=== PATIENT | male | born 1980 | race Caucasian/White ===

== ENCOUNTER 2018-04-06 13:31 | Inpatient (IN) | payer MEDICAID, SELFPAY ==
[2018-04-06 13:59] VITALS: BMI 23.8
[2018-04-06 14:02] VITALS: BP 138/77; PULSE 59; RESP 16; TEMP 36.7; O2SAT 100
--- NOTE | 2018-04-06 14:34 | PCM.HP.STD ---
Problem List (1) Opiate withdrawal Status: Acute History of Present Illness Date of Admission: 04/06/18 Chief Complaint: Heroin withdrawal The patient is a 37 year old Ector Odonnell seeking treatment for acute heroin withdrawal. Patient's last use was at 1 AM. Patient has been experiencing rhinorrhea, restless legs, abdominal cramps, nausea, blurry vision with lacrimation. Patient does not share needles but has reuses needles on occasion. States that he when he reuses needles he cleans them with alcohol. [] Past Medical History Allergies No Known Allergies Allergy (Verified 04/06/18 14:00) Home Medications: Ambulatory Orders Medication Instructions Recorded NK [NK] 04/06/18 Psychiatric History: No pertinent psych hx Lives: Alone Smoking Status: Heavy Smoker (>10/day) Tobacco Use: Cigarettes Alcohol: None Drugs: Heroin - *Family History Maternal History Items: - - health no problems Paternal History Items: - - healthy no problems Review of Systems Constitutional: Denies: Anorexia, Fever Eyes: Denies: Blurred vision, Double vision HEENT: Denies: Head Aches, Sinus Congestion, Sinus Drainage Cardiovascular: Denies: Chest Pain, Palpitations Respiratory: Denies: Cough, Shortness of breath at rest, Sputum production Gastrointestinal: Reports: Nausea. Denies: Abdominal Pain, Vomiting Genitourinary: Denies: Dysuria Musculoskeletal: Denies: Joint Pain, Joint Tenderness Skin: Denies: Dryness Neurological: Denies: Balance problems, Blurred vision, Double vision Psychiatric: Denies: Anxiety, Depression Hematologic/ Lymphatic: Denies: Easy Bruising, Easy Bleeding, Hx of blood clot Comment: Area, lacrimation, restless legs. VTE Information - Inpt Only VTE Present on Admission: No VTE Mechan Device Prophylaxis: None VTE Pharm Prophylaxis ordered?: No Patient Problems: Active and Suspected Problems Opiate withdrawal (Acute) - Physical Exam General: Alert, Cooperative, No apparent distress HEENT: Atraumatic, Normocephalic Neck: No Nodes, Thyroid Normal Size and Texture Lungs: Clear to auscultation, Normal air movement, No rhonchi, No wheeze Cardiovascular: Regular rate, Regular Rhythm, Normal S1, Normal S2, No murmurs Abdomen: Bowel Sounds Present, Soft, Non Tender, Non-Distended, No Hepato-splenomegaly Extremities: No edema, No Calf Tenderness Skin: No rashes Musculoskeletal: No Tenderness to Palpation of Joints or Extremities, No Muscle Wasting Neurological: Deep Tendon Reflexes 2+/4 and Symmetrical, Neuro grossly intact Psych/Mental Status: Normal Affect, Appropriate Vital Signs Temp Pulse Resp BP Pulse Ox 36.7 C 59 L 16 138/77 H 100 04/06/18 14:02 04/06/18 14:02 04/06/18 14:02 04/06/18 14:02 04/06/18 14:02 Oxygen Delivery Method Room Air Assessment/Plan Active and Suspected Problems Opiate withdrawal (Acute) Acute heroin withdrawal Intake CINA for his 16 Patient will be started on the [facility] medical stabilization protocol for acute opiate withdrawal with Subutex. Patient will also have additional medications to help with the symptoms as needed. This will be a 3 day process and patient's date of discharge will be the morning of April 09. Patient advised that this is a lifelong giraldo. Patient will be medically stabilized here and then will be transitioned Via [facility] to the next phase of his treatment protocol. Tobacco abuse: Patient will have nicotine patch. Code Visit Inpatient E&M: 09695 Init Hosp L3
--- NOTE | 2018-04-06 14:41 | HP.PCM_ITS ---
Problem List (1) Opiate withdrawal Status: Acute History of Present Illness Date of Admission: 04/06/18 Chief Complaint: Heroin withdrawal The patient is a 37 year old Ector Odonnell seeking treatment for acute heroin withdrawal. Patient's last use was at 1 AM. Patient has been experiencing rhinorrhea, restless legs, abdominal cramps, nausea, blurry vision with lacrimation. Patient does not share needles but has reuses needles on occasion. States that he when he reuses needles he cleans them with alcohol. [ ] Past Medical History Allergies No Known Allergies Allergy (Verified 04/06/18 14:00) Home Medications: Ambulatory Orders Medication Instructions Recorded NK [NK] 04/06/18 Psychiatric History: No pertinent psych hx Lives: Alone Smoking Status: Heavy Smoker (>10/day) Tobacco Use: Cigarettes Alcohol: None Drugs: Heroin - *Family History Maternal History Items: - - health no problems Paternal History Items: - - healthy no problems Review of Systems Constitutional: Denies: Anorexia, Fever Eyes: Denies: Blurred vision, Double vision HEENT: Denies: Head Aches, Sinus Congestion, Sinus Drainage Cardiovascular: Denies: Chest Pain, Palpitations Respiratory: Denies: Cough, Shortness of breath at rest, Sputum production Gastrointestinal: Reports: Nausea. Denies: Abdominal Pain, Vomiting Genitourinary: Denies: Dysuria Musculoskeletal: Denies: Joint Pain, Joint Tenderness Skin: Denies: Dryness Neurological: Denies: Balance problems, Blurred vision, Double vision Psychiatric: Denies: Anxiety, Depression Hematologic/ Lymphatic: Denies: Easy Bruising, Easy Bleeding, Hx of blood clot Comment: Area, lacrimation, restless legs. VTE Information - Inpt Only VTE Present on Admission: No VTE Mechan Device Prophylaxis: None VTE Pharm Prophylaxis ordered?: No Patient Problems: Active and Suspected Problems Opiate withdrawal (Acute) - Physical Exam General: Alert, Cooperative, No apparent distress HEENT: Atraumatic, Normocephalic Neck: No Nodes, Thyroid Normal Size and Texture Lungs: Clear to auscultation, Normal air movement, No rhonchi, No wheeze Cardiovascular: Regular rate, Regular Rhythm, Normal S1, Normal S2, No murmurs Abdomen: Bowel Sounds Present, Soft, Non Tender, Non-Distended, No Hepato- splenomegaly Extremities: No edema, No Calf Tenderness Skin: No rashes Musculoskeletal: No Tenderness to Palpation of Joints or Extremities, No Muscle Wasting Neurological: Deep Tendon Reflexes 2+/4 and Symmetrical, Neuro grossly intact Psych/Mental Status: Normal Affect, Appropriate Vital Signs Temp Pulse Resp BP Pulse Ox 36.7 C 59 L 16 138/77 H 100 04/06/18 14:02 04/06/18 14:02 04/06/18 14:02 04/06/18 14:02 04/06/18 14:02 Oxygen Delivery Method Room Air Assessment/Plan Active and Suspected Problems Opiate withdrawal (Acute) Acute heroin withdrawal * Intake CINA for his 16 * Patient will be started on the [facility] medical stabilization protocol for acute opiate withdrawal with Subutex. Patient will also have additional medications to help with the symptoms as needed. This will be a 3 day process and patient's date of discharge will be the morning of April 09. * Patient advised that this is a lifelong giraldo. Patient will be medically stabilized here and then will be transitioned Via [facility] to the next phase of his treatment protocol. Tobacco abuse: * Patient will have nicotine patch. Code Visit Inpatient E&M: 84802 Init Hosp L3
[2018-04-06 14:42] VITALS: BMI 23.8
[2018-04-06 15:10] VITALS: PULSE 55
[2018-04-06] MEDS: cloNIDine HCl 0.1 MG Tablet PO ×2 (15:23→18:02)
[2018-04-06] MEDS: Ondansetron ODT 4 MG Tablet PO (15:23)
[2018-04-06] MEDS: Ibuprofen 600 MG Tablet PO (15:24)
[2018-04-06] MEDS: Pramipexole Di-HCl 0.25 MG Tablet PO (15:25)
[2018-04-06] MEDS: Buprenorphine HCl 2 MG TAB.SUBL SL ×2 (15:36→22:14)
[2018-04-06] MEDS: Dicyclomine 10 MG Capsule 20 MG PO (16:57)
[2018-04-06 17:00] VITALS: BP 154/73; PULSE 85; RESP 18; TEMP 36.4
--- NOTE | 2018-04-06 17:26 | NURSING ---
PT HAD A LARGE EMESIS AND PROBABLY VOMITTED UP ALL HIS MEDS- DR DAVILA AWARE AND BENTYL GIVEN- PT WANTS TO SHOWER AND IT IS OK WITH DR Lenora RAMIREZ REMOVED AND D/C
[2018-04-06] MEDS: proMETHazine 25 MG/ML Syringe IM (19:05)
[2018-04-06 22:06] VITALS: BP 106/58; PULSE 55; RESP 16; TEMP 36.9
[2018-04-06] MEDS: hydrOXYzine PAM 25 MG Capsule 50 MG PO (22:14)
[2018-04-06] MEDS: traZODone 50 MG Tablet PO (22:14)
[2018-04-06] MEDS: Methocarbamol 750 MG Tablet PO (22:22)
[2018-04-07] VITALS (8 sets, daily range): BP systolic 96–132; BP diastolic 39–70; PULSE 47–76; RESP 14–16; TEMP 36.8–37.6; O2SAT 98
[2018-04-07] MEDS: proMETHazine 25 MG/ML Syringe IM ×2 (01:09→10:48)
[2018-04-07] MEDS: Loperamide 2 MG Capsule PO (02:10)
[2018-04-07] MEDS: Ondansetron ODT 4 MG Tablet PO ×3 (02:10→17:14)
[2018-04-07] MEDS: Ibuprofen 600 MG Tablet PO ×3 (02:10→22:07)
[2018-04-07] MEDS: Dicyclomine 10 MG Capsule 20 MG PO ×3 (02:10→22:07)
[2018-04-07 06:08] LABS: Absolute Lymphocyte Count 1.12 X10^3/ul (0.83-4.51); Absolute Neutrophil Count 9.8 X10^3/uL (2.0-7.7); Basophil# 0.01 X10^3/uL; Basophil% 0.1 % (0-1); Hematocrit 43.3 % (40-54); Hemoglobin 15.5 g/dl (13.0-16.5); Lymphocyte # 1.12 X10^3/ul (4.0); Lymphocyte % 9.9 % (19-41); Mean Corp Hgb Conc 35.8 g/gl (32-36); Mean Corpuscular Hgb 33.4 pg (27.0-32.0); Mean Corpuscular Volume 93.3 fL (80-94); Mean Platelet Vol. 10.3 fl (6.2-12.0); Monocyte# 0.44 X10^3/uL; Monocyte% 3.9 % (0-10); Neutrophil # 9.78 X10^3/uL (2.7-7.7); Neutrophil % 85.9 % (47-70); POSITIVE COUNT NO; POSITIVE DIFFERENTIAL NO; POSITIVE MORPHOLOGY NO; Platelet Count 230 K/mm3 (150-450); RBC Distribution Width CV 12.9 % (11.6-14.6); Red Blood Count 4.64 M/mm3 (4.6-6.2); White Blood Count 11.4 K/mm3 (4.4-11.0)
[2018-04-07 06:20] LABS: Anion Gap 9 (5-15); BUN 15 mg/dL (7-18); BUN/Creat Ratio 13.2 RATIO (10-20); Calcium,Total 9.1 mg/dL (8.5-10.1); Chloride 107 mmol/L (98-107); Creatinine, Serum 1.14 mg/dL (0.70-1.30); EST Glomerular Filtration Rate 77 mL/min (>60); Est Glom Filt Rate - Afr Amer 93 mL/min (>60); Estimated Creatinine Clearance 86.67 ml/min; Glucose 119 mg/dL (74-106); Potassium 3.6 mmol/L (3.5-5.1); Sodium Level 142 mmol/L (136-145)
[2018-04-07] MEDS: hydrOXYzine PAM 25 MG Capsule 50 MG PO ×3 (06:28→22:08)
[2018-04-07] MEDS: Buprenorphine HCl 2 MG TAB.SUBL SL ×3 (06:28→22:07)
[2018-04-07] MEDS: cloNIDine HCl 0.1 MG Tablet PO ×2 (06:28→10:46)
--- NOTE | 2018-04-07 07:43 | PN_ITS ---
Patient Problems: Active and Suspected Problems Opiate withdrawal (Acute) Subjective: This a 37-year-old gentleman with history of heroine dependence presented with acute opiate withdrawal patient has been admitted to regular nursing floor where he is currently undergoing medical stabilization Patient seen this a.m. complains of abdominal cramps as well as restless legs. Objective: GENERAL: cooperative HEENT: Clear conjunctiva, NECK; supple, normal thyroid, CHEST: Clear to auscultation bilaterally, HEART: Regular S1 S2, no audible murmurs ABDOMEN: soft, non-tender, normoactive bowel sounds, RECTAL: deferred EXTREMITIES: No edema, no clubbing, no cyanosis. 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 SKIN: No rash Vitals/I&O's: Vital Signs Temp Pulse Resp BP Pulse Ox 99.6 F H 76 14 110/60 100 04/07/18 06:21 04/07/18 06:21 04/07/18 06:21 04/07/18 06:21 04/06/18 14:02 Oxygen Delivery Method Room Air Weight: 70.987 kg Body Mass Index (BMI) 23.8 Intake and Output for Last 24 Hours 04/05/18 04/06/18 04/07/18 23:59 23:59 23:59 Intake Total 400 / 400 400 / 400 Balance 400 / 400 400 / 400 Laboratory Results 04/07/18 05:40: Hepatitis C Ab (EIA) Pending, Hepatitis C Comment Pending 04/07/18 05:40: HIV 1&2 Antibody Pending 04/07/18 05:40: Sodium 142, Potassium 3.6, Chloride 107, Carbon Dioxide 26.0, Anion Gap 9, BUN 15, Creatinine 1.14, Estim Creat Clear Calc 86.67, Est GFR ( MDRD) Af Amer 93, Est GFR (MDRD) Non-Af 77, BUN/Creatinine Ratio 13.2, Glucose 119 H, Calcium 9.1 04/07/18 05:40: WBC 11.4 H, RBC 4.64, Hgb 15.5, Hct 43.3, MCV 93.3, MCH 33.4 H, MCHC 35.8, RDW 12.9, RDW Differential 43.0, Plt Count 230, MPV 10.3, Immature Gran % (Auto) 0.200, Neut % (Auto) 85.9 H, Lymph % (Auto) 9.9 L, [place] % (Auto) 3.9, Eos % (Auto) 0.0, Baso % (Auto) 0.1, Absolute Neuts (auto) 9.8 H, Absolute Lymphs (auto) 1.12, Total Counted Not Reportable Current Medications Acetaminophen (Tylenol) 500 mg PO Q4H PRN PRN PRN Reason: Temp > 100.4 F Buprenorphine HCl (Buprenorphine Hcl) 4 mg SL Q8H ROBBY PRN Reason: Taper Stop: 04/09/18 18:59 Last Admin: 04/07/18 06:28 Dose: 4 mg Clonidine (Catapres) 0.1 mg PO Q2H PRN PRN PRN Reason: Hot/Cold Sweats or Anxiety Last Admin: 04/07/18 06:28 Dose: 0.1 mg Dicyclomine HCl (Bentyl) 20 mg PO Q6H PRN PRN PRN Reason: Abdomnial Discomfort Last Admin: 04/07/18 02:10 Dose: 20 mg Hydroxyzine Pamoate (Vistaril Pamoate Capsule) 50 mg PO 4X/DAY PRN PRN PRN Reason: ANXIETY Last Admin: 04/07/18 06:28 Dose: 50 mg Ibuprofen (Motrin) 600 mg PO Q8H PRN PRN PRN Reason: Mild-Moderate Pain (1-5/10) Last Admin: 04/07/18 02:10 Dose: 600 mg Loperamide HCl (Imodium) 2 - 4 mg PO UD PRN PRN Reason: LOOSE STOOLS Last Admin: 04/07/18 02:10 Dose: 4 mg Magnesium Hydroxide (Milk Of Magnesia) 30 ml PO DAILY PRN PRN PRN Reason: Constipation Methocarbamol (Methocarbamol) 750 mg PO 4X/DAY PRN PRN Reason: MUSCLE SPASM Last Admin: 04/06/18 22:22 Dose: 750 mg Nicotine (Nicoderm Cq (Pbkc)) 21 mg TRANSDERM. DAILY ROBBY Last Admin: 04/06/18 15:59 Dose: 21 mg Ondansetron HCl (Zofran Odt) 4 mg PO Q6H PRN PRN PRN Reason: NAUSEA Last Admin: 04/07/18 02:10 Dose: 4 mg Pramipexole Dihydrochloride (Mirapex) 0.25 mg PO Q12H PRN PRN Reason: RESTLESS LEGS Last Admin: 04/06/18 15:25 Dose: 0.25 mg Promethazine HCl (Phenergan) 6.25 - 12.5 mg IM Q6H PRN PRN PRN Reason: NAUSEA/VOMITING Last Admin: 04/07/18 01:09 Dose: 12.5 mg Trazodone HCl (Desyrel) 50 mg PO QHS ROBBY Last Admin: 04/06/18 22:14 Dose: 50 mg Medical Necessity - Tobacco Use Smoking Status: Heavy Smoker (>10/day) Tobacco Use: Cigarettes Assessment/Plan Active and Suspected Problems Opiate withdrawal (Acute) This a 37-year-old gentleman with history of heroine dependence presented with acute opiate withdrawal patient has been admitted to regular nursing floor where he is currently undergoing medical stabilization 1. Acute opioid withdrawal: Patient has been admitted to regular nursing floor where he is currently being managed with Subutex for medical stabilization 2. Heroine dependence counseled on cessation 3. Tobacco dependence counseled on cessation, offered nicotine patch for tobacco cravings 4. DVT prophylaxis low risk did encourage early ambulation Code Visit Inpatient E&M: 87671 Subs Hosp L3
[2018-04-07] MEDS: Methocarbamol 750 MG Tablet PO ×2 (09:06→17:14)
[2018-04-07] MEDS: Pramipexole Di-HCl 0.25 MG Tablet PO ×2 (09:06→22:08)
[2018-04-07] MEDS: Acetaminophen 500 MG Tablet PO ×2 (12:54→17:14)
[2018-04-07] MEDS: traZODone 50 MG Tablet PO (22:09)
[2018-04-08 02:00] VITALS: BP 110/57; PULSE 43; RESP 16; TEMP 36.8
[2018-04-08 06:16] VITALS: BP 112/62; PULSE 45; RESP 16; TEMP 36.8
[2018-04-08] MEDS: Buprenorphine HCl 2 MG TAB.SUBL SL ×2 (06:22→19:22)
[2018-04-08] MEDS: Ondansetron ODT 4 MG Tablet PO (07:29)
--- NOTE | 2018-04-08 08:00 | PN_ITS ---
Patient Problems: Active and Suspected Problems Opiate withdrawal (Acute) Subjective: Patient seen up in about overall clinical condition continues to improve Objective: GENERAL: cooperative HEENT: Clear conjunctiva, NECK; supple, normal thyroid, CHEST: Clear to auscultation bilaterally, HEART: Regular S1 S2, no audible murmurs ABDOMEN: soft, non-tender, normoactive bowel sounds, RECTAL: deferred EXTREMITIES: No edema, no clubbing, no cyanosis. 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 SKIN: No rash Vitals/I&O's: Vital Signs Temp Pulse Resp BP Pulse Ox 98.3 F 45 L 16 112/62 98 04/08/18 06:16 04/08/18 06:16 04/08/18 06:16 04/08/18 06:16 04/07/18 14:52 Oxygen Delivery Method Room Air Weight: 70.987 kg Body Mass Index (BMI) 23.8 Intake and Output for Last 24 Hours 04/06/18 04/07/18 04/08/18 23:59 23:59 23:59 Intake Total 400 / 400 1000 / 1000 200 / 200 Balance 400 / 400 1000 / 1000 200 / 200 Current Medications Acetaminophen (Tylenol) 500 mg PO Q4H PRN PRN PRN Reason: Temp > 100.4 F Last Admin: 04/07/18 17:14 Dose: 500 mg Buprenorphine HCl (Buprenorphine Hcl) 2 mg SL Q12H ROBBY PRN Reason: Taper Stop: 04/09/18 18:59 Last Admin: 04/08/18 06:22 Dose: 2 mg Clonidine (Catapres) 0.1 mg PO Q2H PRN PRN PRN Reason: Hot/Cold Sweats or Anxiety Last Admin: 04/07/18 10:46 Dose: 0.1 mg Dicyclomine HCl (Bentyl) 20 mg PO Q6H PRN PRN PRN Reason: Abdomnial Discomfort Last Admin: 04/07/18 22:07 Dose: 20 mg Hydroxyzine Pamoate (Vistaril Pamoate Capsule) 50 mg PO 4X/DAY PRN PRN PRN Reason: ANXIETY Last Admin: 04/07/18 22:08 Dose: 50 mg Ibuprofen (Motrin) 600 mg PO Q8H PRN PRN PRN Reason: Mild-Moderate Pain (1-5/10) Last Admin: 04/07/18 22:07 Dose: 600 mg Loperamide HCl (Imodium) 2 - 4 mg PO UD PRN PRN Reason: LOOSE STOOLS Last Admin: 04/07/18 02:10 Dose: 4 mg Magnesium Hydroxide (Milk Of Magnesia) 30 ml PO DAILY PRN PRN PRN Reason: Constipation Methocarbamol (Methocarbamol) 750 mg PO 4X/DAY PRN PRN Reason: MUSCLE SPASM Last Admin: 04/07/18 17:14 Dose: 750 mg Nicotine (Nicoderm Cq (Pbkc)) 21 mg TRANSDERM. DAILY [facility] Last Admin: 04/07/18 09:05 Dose: 21 mg Ondansetron HCl (Zofran Odt) 4 mg PO Q6H PRN PRN PRN Reason: NAUSEA Last Admin: 04/08/18 07:29 Dose: 4 mg Pramipexole Dihydrochloride (Mirapex) 0.25 mg PO Q12H PRN PRN Reason: RESTLESS LEGS Last Admin: 04/07/18 22:08 Dose: 0.25 mg Promethazine HCl (Phenergan) 6.25 - 12.5 mg IM Q6H PRN PRN PRN Reason: NAUSEA/VOMITING Last Admin: 04/07/18 10:48 Dose: 12.5 mg Trazodone HCl (Desyrel) 50 mg PO QHS [facility] Last Admin: 04/07/18 22:09 Dose: 50 mg Medical Necessity - Tobacco Use Smoking Status: Heavy Smoker (>10/day) Tobacco Use: Cigarettes Assessment/Plan Active and Suspected Problems Opiate withdrawal (Acute) This a 37-year-old gentleman with history of heroine dependence presented with acute opiate withdrawal patient has been admitted to regular nursing floor where he is currently undergoing medical stabilization 1. Acute opioid withdrawal: Patient has been admitted to regular nursing floor where he is currently being managed with Subutex for medical stabilization 2. Heroine dependence counseled on cessation 3. Tobacco dependence counseled on cessation, offered nicotine patch for tobacco cravings 4. DVT prophylaxis low risk did encourage early ambulation Code Visit Inpatient E&M: 61146 Subs Hosp L2
[2018-04-08 09:35] LABS: HIV - WCH Non-Reactive (Nonreactive)
[2018-04-08 10:00] VITALS: BP 120/65; PULSE 66; RESP 18; TEMP 37.1
[2018-04-08] MEDS: Methocarbamol 750 MG Tablet PO (10:24)
[2018-04-08] MEDS: Pramipexole Di-HCl 0.25 MG Tablet PO (10:24)
[2018-04-08] MEDS: hydrOXYzine PAM 25 MG Capsule 50 MG PO (10:24)
[2018-04-08] MEDS: Dicyclomine 10 MG Capsule 20 MG PO (10:24)
[2018-04-08 11:31] LABS: Hep C Antibodies <0.1 s/co ratio (0.0-0.9)
[2018-04-08 14:00] VITALS: BP 125/59; PULSE 49; RESP 16; TEMP 37.1
[2018-04-08 18:00] VITALS: BP 122/59; PULSE 50; RESP 16; TEMP 37
[2018-04-08 21:51] VITALS: BP 116/70; PULSE 56; RESP 16; TEMP 36.9
[2018-04-08] MEDS: QUEtiapine 100 MG Tablet 200 MG PO (22:03)
[2018-04-08] MEDS: traZODone 50 MG Tablet PO (22:03)
[2018-04-09 03:33] VITALS: BP 115/69; PULSE 50; RESP 18; TEMP 36.5
[2018-04-09] MEDS: Buprenorphine HCl 2 MG TAB.SUBL SL (06:32)
[2018-04-09 07:41] VITALS: BP 118/70; PULSE 51; RESP 16; TEMP 36.6; O2SAT 100
--- NOTE | 2018-04-09 07:41 | PCM.DC ---
- Discharge Diagnoses Current Active Problems: Current Active and Chronic Problems Opiate withdrawal (Acute) You will use the following diet at home:: No restrictions Discharge Activity: May not drive while taking narcotic pain medications. Allergies/Adverse Reactions: Allergies No Known Allergies Allergy (Verified 04/06/18 14:00) Medications to take at Discharge NK [NK] 04/06/18 Primary Care Physician: Care Physician,No Primary [Primary Care Provider] - Proposed Discharge Date: 04/09/18
--- NOTE | 2018-04-09 07:42 | PCM.DC.SUM ---
Discharge Date and Diagnosis - Problem List Patient Problems: Active and Suspected Problems Opiate withdrawal (Acute) Date of Admission: 04/06/18 Date of Discharge: 04/09/18 - Primary Discharge Diagnosis Active and Suspected Problems Opiate withdrawal (Acute) Hospital Course and Treatment Summary of Care Provided: This a 37-year-old gentleman with history of heroine dependence presented with acute opiate withdrawal patient has been admitted to regular nursing floor where he is currently undergoing medical stabilization 1. Acute opioid withdrawal: Patient has been admitted to regular nursing floor ; managed with Subutex for medical stabilization 2. Heroine dependence counseled on cessation 3. Tobacco dependence counseled on cessation, offered nicotine patch for tobacco cravings 4. DVT prophylaxis low risk did encourage early ambulation Discharge Activity: May not drive while taking narcotic pain medications. Home Medications: Medications to take at Discharge NK [NK] 04/06/18 Primary Care Physician: Care Physician,No Primary [Primary Care Provider] - Disposition: Home Minutes spent on discharge:: 35 Patient Condition:: Stable Medical Necessity - Tobacco Use Smoking Status: Heavy Smoker (>10/day) Tobacco Use: Cigarettes Meaningful Use Info Meaningful Use Diagnoses (Choose all that apply): None applicable Code Visit Inpatient E&M: 19028 Disch Hosp
[2018-04-09 08:05] VITALS: BP 119/48; PULSE 51; RESP 16; TEMP 37.1
== END 2018-04-09 09:39 | disposition home or self-care (01) | DRG 435 ==
LOC: MS3 04-07 10:31 → MS2 04-07 10:31
PROVIDERS: Visit Provider Internal Medicine
DX: F11.23 Opioid dependence with withdrawal (principal); F17.210 Nicotine dependence, cigarettes, uncomplicated
CPT/HCPCS: 36415; 80048; 85025; 86703; 86803; 97802